=== PATIENT | male | born 1990 | race Caucasian/White ===

== ENCOUNTER 2017-03-16 07:42 | Emergency (ER) | payer BC ==
[~2017-03-16] VITALS: Ht 177.8 cm; Wt 76.4 kg
[2017-03-16 07:45] VITALS: TEMP 36.6; Ht 177.8 cm; Wt 76.4 kg
[2017-03-16] MEDS ORDERED: XYLOCAINE 1%/SOD BICARB 20 ML VIAL INFIL ONE (08:15)
[2017-03-16] MEDS ORDERED: DIPHTHERIA/TETANUS/PERTUSSIS 0.5 ML SYR/VIAL IM. ONE (08:15)
[2017-03-16 08:57] VITALS: BP 115/81; PULSE 88; O2SAT 99
--- NOTE | 2017-03-16 09:28 | EMERGENCY ROOM VISIT NOTE ---
ED Visit Note First contact with patient: 07:55 Chief Complaint: I cut my right foot. History of Present Illness: Mr. Caceres is a 26-year-old white male who ambulates into the ED complaining of a right foot laceration. Patient reports approximately one hour ago he was in the shower and accidentally cut his foot when he struck the fourth on the faucet. Associated with his laceration he reported having a stinging discomfort in the foot. He rates the discomfort 4/10. The pain is nonradiating. The pain worsens with palpation. He has not identified any alleviating factors related to the pain. He has not taken any medication for pain prior to arrival at the hospital. He denies any associated ankle pain, foot weakness/numbness/tingling. Review of Systems: As noted above in history of present illness. 8 body systems were reviewed and found to be negative as noted above. Past Medical History: Status post left hip dislocation. Current Medications: Patient denies. Allergies to Medications: Aleve. Social History: Patient is currently employed; he lives alone and feels safe in his home environment; he denies tobacco use and admits to alcohol use. Tetanus Immunization Status: Patient reports out of date. Physical Examination: Vital Signs: Date Time Temp Pulse Resp B/P (MAP) Pulse Ox O2 Delivery O2 Flow Rate FiO2 03/16/17 08:57 88 18 115/81 99 Room Air 03/16/17 07:45 36.6 91 18 120/78 98 Room Air GENERAL: 26-year-old male in mild distress due to pain, nontoxic-appearing, afebrile and hemodynamically stable. NEUROLOGICAL: Awake, alert and oriented to person, place and time. Answering questions appropriately and following commands. Normal gait. SKIN: Warm, dry and pink. Right Foot: On the top of the foot over the distal aspect of the second through fourth metatarsals patient has a 4.6 cm full- thickness laceration. FOOT: No gross bony deformity. Mild tenderness to the top of the foot in the area the laceration. Able to flex and extend all toes against resistance. Throughout the foot the skin was warm and pink and capillary refill is brisk. He was able to distinguish light sensations through all dermatomes. ED Course: Patient is assessed as noted above. Wound Repair: Complexity: Basic Verbal consent was obtained after the risks and benefits were explained. The skin was prepped with betadine and a sterile field set. Wound edges of the wound was anesthetized with ml buffered 1% lidocaine. The wound was explored for foreign bodies and none found. Copious irrigation was performed using sterile saline. With direct pressure the bleeding subsided. Debridement was not performed. The wound edges were approximated using 4-0 Ethilon with 13 simple interrupted sutures. Hemostasis and excellent approximation was achieved. Antibacterial ointment and a sterile dressing applied. No complications and the patient tolerated the procedure well. Patient was offered pain medications and refused. Patient was educated about tonight's findings and instructed on his treatment plan; he verbalizes understanding and agreement with this plan. Clinical Impression: Laceration of the right foot. Disposition: Patient discharged home in stable condition; prior to departure he was reassessed and subjectively reported he was pain and symptom-free. Plan: Comfort measures, wound care, and signs of infection were discussed with the patient. Patient was encouraged to follow-up with primary care provider return to the ED for signs of infection and/or suture removal in 10-12 days.
== END 2017-03-16 09:13 | disposition home or self-care (01) ==
LOC: C.EDB 07:44
DX: S91.311A Laceration without foreign body, right foot, initial encounter (principal); W22.8XXA Striking against or struck by other objects, initial encounter; Z23 Encounter for immunization